=== PATIENT | female | born 1940 | race Caucasian/White ===

== ENCOUNTER → 2020-09-24 | Outpatient (CLI) | payer OTHER, MEDICARE ==
[~2020-09-24] MED LIST: DIOVAN HCT 1601 EACH PO; HYDROCODON-ACE1 EAC7 PO; LEVOTHYROXINE150 MC1 PO; METOPROLOL TART25 MG PO; NEURONTIN100 MG PO; ZOLOFT100 MG PO
== END ==
LOC: LAB 11:56
PROVIDERS: ATTEND Orthopaedic Surgery Hand Surgery
DX: Z01.812 Encounter for preprocedural laboratory examination (principal); Z20.828 Contact with and (suspected) exposure to other viral communicable diseases

== ENCOUNTER 2020-09-27 11:13 | Day surgery (SDC) | payer OTHER, MEDICARE ==
[~2020-09-27] VITALS: Ht 165.1 cm; Wt 106.6 kg
--- NOTE | ~2020-09-27 | O ---
[facility] [place] [address] OPERATIVE REPORT Name: ANA BULLOCK Room #: DEP [facility]..#: [id number] Admission: 09/27/20 Attend Phys: Lyndsay Monroe, Discharge: 09/27/20 Date of : 44 Report #: [id number] THIS REPORT FOR: cc: Ramsey Sinha MD, Gary A. MD Deardorff, Valerie A. MD ~ DATE OF SERVICE: 09/27/2020 PREOPERATIVE DIAGNOSIS: Left distal radius fracture, 2 intraarticular fragments. POSTOPERATIVE DIAGNOSIS: Left distal radius fracture, 2 intraarticular fragments. PROCEDURE PERFORMED: Open reduction and internal fixation of left distal radius fracture with 2 intraarticular fragments. SURGEON: Lyndsay Monroe M.D. ANESTHESIA: General mask anesthesia. ESTIMATED BLOOD LOSS: Minimal. TOURNIQUET TIME: 36 minutes. COMPLICATIONS: None. CONDITION: Stable. DISPOSITION: Recovery room. INDICATIONS: The patient is a 80-year-old female with the above-mentioned diagnosis. She elects for operative treatment. The risks, benefits, alternatives and complications were discussed including but not limited to stiffness, infection, damage to the vessels or nerves, incomplete healing, wound healing problems, hardware problems. Informed consent was obtained. The correct extremity was identified and labeled by myself after verbal review of systems with the patient as well as visual confirmation and signed informed consent. IMPLANTS USED: [employer] volar distal radius locking plate, size standard. DESCRIPTION OF PROCEDURE: The patient was brought back to the operating room and placed on the operating table in supine position. She received preoperative antibiotics. Tourniquet was placed over padding on the patient's left upper [address] [address] OPERATIVE REPORT Name: ANA BULLOCK Room #: DEP [facility]..#: [id number] Admission: 09/27/20 Attend Phys: Lyndsay Monroe, Discharge: 09/27/20 Date of : 44 Report #: [id number] extremity. Left upper extremity was sterilely prepped and draped in the usual fashion. A final timeout was taken to verify correct patient, operative procedure, operative site, all concurred. The arm was elevated, exsanguinated and the tourniquet inflated. Next, a volar approach was done to the distal radius over the FCR tendon. The incision measured approximately 6 cm. Dissection was carried down through subcutaneous tissue with tenotomy scissors. The tendon sheath was identified and incised. The subsheath was incised. The volar contents were retracted ulnarly and the radial aspect of the pronator quadratus was incised. The pronator was then elevated off the fracture site. The fracture site was easily identified, cleaned off clot and debris and reduced without significant difficulty. A volar distal radius locking plate from [employer], size standard was placed on the bone. It was checked under fluoroscopy and found to be in the appropriate position. It was affixed to the bone using cortical screw and using fluoroscopic guidance, it was corrected in position. Next, distal locking screws were drilled, measured and appropriate size screws were placed. Careful attention was placed to avoiding dorsal penetration with the drill and the screw. Careful attention was placed to avoid intraarticular penetration. This was assessed using a guide and fluoroscopy. Next, the radial side screws were drilled, measured and appropriate size screws were placed. The proximal shaft screws were then drilled, measured and appropriate size screws were placed. The fracture was found to be in excellent alignment. Hardware was placed in good alignment as well. These were all tightened. AP, lateral and live fluoroscopic views, lateral tilt and then ulnar deviation views all showed good position of the hardware fracture and no widening between the scaphoid and the lunate. The DRUJ was assessed and found to be stable. The wound was thoroughly irrigated. The pronator quadratus was reapproximated between the plate and the FPL tendon with a 4-0 Vicryl suture. This patient's pronator was fairly thin. The skin was closed with 4-0 nylon suture. The subcutaneous tissue was infiltrated with approximately 7 mL of 0.25% Marcaine. She was placed in a bulky dressing and a volar slab splint. All fingers were pink with brisk capillary refill at the conclusion of the case after deflation of the tourniquet. All sponge and needle counts were correct. The patient was transferred to postoperative recovery room in stable condition. She tolerated the procedure well. Of note, prior to initiating the surgical procedure in the OR, fluoroscopy was brought in and AP, lateral, and live fluoroscopic views of the elbow showed no evidence of any fracture at the conclusion. By: [id number] Lyndsay Monroe MD /ralf
[2020-09-27 12:00] VITALS: BP 142/75
[2020-09-27 14:57] VITALS: BP 142/75
[2020-09-27 14:58] VITALS: BP 142/75
== END 2020-09-27 14:40 | disposition home or self-care (01) ==
LOC: OR → TBA 11:13 → OR 12:53
PROVIDERS: ATTEND Orthopaedic Surgery Hand Surgery
DX: S52.572A Other intraarticular fracture of lower end of left radius, initial encounter for closed fracture (principal); I10 Essential (primary) hypertension; E78.5 Hyperlipidemia, unspecified; I48.91 Unspecified atrial fibrillation; F32.9 Major depressive disorder, single episode, unspecified; Z90.49 Acquired absence of other specified parts of digestive tract; Z96.653 Presence of artificial knee joint, bilateral; Z85.3 Personal history of malignant neoplasm of breast; Z98.890 Other specified postprocedural states; Z79.899 Other long term (current) drug therapy; Z79.01 Long term (current) use of anticoagulants
CPT/HCPCS: 50010; 50101; 50386; 51736; 56526; 57006; 57091; 57178; 58235; 58236; 58237; 58238; 62110; 62900; 70005

== ENCOUNTER 2021-09-12 13:09 | Day surgery (SDC) | payer OTHER, MEDICARE ==
[~2021-09-12] VITALS: Ht 165.1 cm; Wt 102.1 kg
[~2021-09-12 13:09] MED LIST changes: +MULTI VITAMIN1 EACH PO
[2021-09-12 14:15] VITALS: BP 129/68
[2021-09-12 18:19] VITALS: BP 129/68
--- NOTE | 2021-09-13 07:17 | EKG ---
[address] [address] ELECTROCARDIOGRAM REPORT Name: ANA BULLOCK Room #: DEP [facility]#: [id number] Admission: 09/12/21 Attend Phys: Lyndsay Monroe, Discharge: 09/12/21 Date of : 44 Report #: [id number] [facility] Test Date: 2021-09-12 Test Time: 14:12:48 Pat Name: ANA BULLOCK Department: Room: 150 3 Gender: F Tram Inspector: SAVI : 1940 Requested By: Lyndsay Monroe Order Number: [id number] MD: Jone Plummer Measurements Intervals [place] Rate: 67 P: 72 [place]: 205 QRS: 26 QRSD: 106 T: 20 QT: 435 QTc: 460 Interpretive Statements Sinus rhythm Inferior infarct, old No previous ECG available for comparison Electronically Signed On 09-13-2021 7:16:59 DATA PROCESSING CONTROL CLERK by Jone Plummer [email or web address] <ELECTRONICALLY SIGNED> By: Jone Plummer MD, [facility] 09/13/21 0716 1412 11 Jone Plummer MD, FACC /EPI
--- NOTE | 2021-09-16 21:46 | O ---
[facility] Raj Nazario [facility] [place] [address] OPERATIVE REPORT Name: ANA BULLOCK Room #: DEP [facility]..#: [id number] Admission: 09/12/21 Attend Phys: Lyndsay Monroe, Discharge: 09/12/21 Date of : 44 Report #: [id number] THIS REPORT FOR: cc: Ramsey Sinha MD, Gary A. MD Deardorff, Valerie A. MD ~ DATE OF SERVICE: 09/12/2021 PREOPERATIVE DIAGNOSES: 1. Left thumb extensor pollicis longus tendon injury over the wrist. 2. Left long finger trigger finger. POSTOPERATIVE DIAGNOSES: 1. Left thumb extensor pollicis longus tendon injury over the wrist. 2. Left long finger trigger finger. PROCEDURES PERFORMED: 1. Left extensor indicis proprius tendon transfer to thumb extensor pollicis longus tendon transfer. 2. Left long finger A1 raúl release. SURGEON: Dr. Lyndsay Monroe. TYPE OF ANESTHESIA: General mask anesthesia. ESTIMATED BLOOD LOSS: Minimal. TOURNIQUET TIME: 46 minutes. COMPLICATIONS: None. CONDITION: Stable. DISPOSITION: To recovery room. INDICATIONS: The patient is a 81-year-old female with the above-mentioned diagnosis. She elects for operative treatment. The risks, benefits, alternatives and complications were discussed including but not limited to infection, damage to vessels or nerves, incomplete relief of her symptoms, stiffness, tendon rupture. Informed consent was obtained, the correct extremity was identified and labeled by myself after verbal confirmation of the patient as well as visual confirmation and signed informed consent. DESCRIPTION OF PROCEDURE: The patient was brought to the operating room and placed in supine position. She received preoperative antibiotics. Tourniquet was placed over padding. The patient's left upper extremity was sterilely [address] [address] OPERATIVE REPORT Name: ANA BULLOCK [id number] Admission: 09/12/21 Attend Phys: Lyndsay Monroe, Discharge: 09/12/21 Date of : 44 Report #: [id number] prepped and draped in the usual fashion. Timeout was taken to verify correct patient, procedure and site, all concurred. The arm was elevated, exsanguinated and tourniquet inflated. Next, an oblique incision was made at the level of A1 raúl and the left long finger dissection was carried down through extremity with tenotomy scissors. The thickened A1 raúl was easily identified and incised. Careful attention was placed to avoid damage to any other structures. The finger was taken through a passive range of motion. The tendons moved smoothly. There was no locking or clicking. The wound was thoroughly irrigated. Skin was closed with 4-0 nylon suture. Next, attention was placed to the dorsal aspect of the hand. A curvilinear incision was made over the course of the EPL tendon. Dissection was carried down through fascia with tenotomy scissors. The tendon was then found to be ruptured at the approximate level of Kee's tubercle. There were no bone spurs noted. The distal stump was then mobilized. Next, a transverse incision was made just proximal to the index MP joint. The EIP tendon was identified and transected. It was then taken into the proximal incision and it was sutured to the stump of the EPL tendon using a 3-pass Pulvertaft weave taking care to maintain appropriate tensioning. This was very stable and provided appropriate tension with tenodesis. A portion of the fourth compartment was incised radially to potentially allow for excursion of the tendon. The tendon was sutured with 4-0 FiberWire and 3-0 Ethibond. The wounds were then all thoroughly irrigated. The dorsal wounds were closed with 3-0 and 4-0 Monocryl and Steri-Strips. The subcutaneous tissue was infiltrated with approximately total of 8 mL of 0.25% Marcaine in divided doses for a total. The wounds were dressed with Adaptic and sterile gauze. She was placed in a bulky dressing and a volar thumb spica splint with the wrist and thumb extended. All fingers were pink, brisk capillary refill at the conclusion of case, all sponge and needle counts were correct. The patient was transferred to postoperative recovery room in stable condition. <ELECTRONICALLY SIGNED> By: Lyndsay Monroe MD 09/16/21 2146 1704 1821 Lyndsay Monroe MD /nt
== END 2021-09-12 18:30 | disposition home or self-care (01) ==
LOC: OR 13:09 → TBA 13:23 → OR 13:28
PROVIDERS: ATTEND Orthopaedic Surgery Hand Surgery
DX: S66.212A Strain of extensor muscle, fascia and tendon of left thumb at wrist and hand level, initial encounter (principal); M65.332 Trigger finger, left middle finger; I10 Essential (primary) hypertension; E78.5 Hyperlipidemia, unspecified; F32.9 Major depressive disorder, single episode, unspecified; I48.91 Unspecified atrial fibrillation; Z98.890 Other specified postprocedural states; Z79.899 Other long term (current) drug therapy; Z20.822 Contact with and (suspected) exposure to COVID-19; Z96.653 Presence of artificial knee joint, bilateral; X58.XXXA Exposure to other specified factors, initial encounter; Y93.89 Activity, other specified; Y92.89 Other specified places as the place of occurrence of the external cause; Y99.8 Other external cause status
CPT/HCPCS: 50010; 50101; 50386; 51736; 56525; 56526; 56527; 56531; 57006; 57091; 57178; 62110; 62900; 70005